=== PATIENT | male | born 1990 | race Caucasian/White ===

== ENCOUNTER 2020-10-28 09:00 | Outpatient (CLI) | payer OTHER ==
--- NOTE | 2020-10-28 11:58 | MRI Report ---
PROCEDURE: Foot RT W/O INDICATIONS: RT FOOT PAIN TECHNIQUE: Noncontrast coronal and sagittal T1 spin echo and STIR; axial T1 spin echo and T2 fast spin echo with fat saturation through the right forefoot. COMPARISON: None. FINDINGS: Image quality: Excellent. Bones: The visualized bone marrow demonstrates normal signal on all sequences. The overlying cortex appears intact. No fractures lines or intra-osseous lesions. Soft tissues: The scanned muscles demonstrate normal overall bulk and internal signal. Mild edema ov erlying the fifth MTP joint.. No soft tissue masses are present. 3 mm ganglion cyst seen in the reg ion of the Lisfranc ligament which is intact. IMPRESSION: Nonspecific lateral forefoot subcutaneous cellulitis at the level of the fifth metatarsal joint. This is in the area of the fiducial marker placed on the skin surface. Reviewed by: Reinier Ugalde MD on 10/28/2020 11:57 AM [facility] Approved by: Reinier Ugalde MD on 10/28/2020 11:57 AM [facility] Station ID: [id number]
== END 2020-10-28 09:01 | disposition home or self-care (01) ==
LOC: DI 09:00
PROVIDERS: ATTEND Student in an Organized Health Care Education/Training Program
DX: M79.671 Pain in right foot (principal); L03.115 Cellulitis of right lower limb

== ENCOUNTER 2021-03-23 10:30 | Emergency (ER) | payer OTHER ==
[2021-03-23 10:44] VITALS: BP 162/84
--- NOTE | 2021-03-23 11:01 | ED Physician Documentation ---
History of Present Illness - Stated complaint Stated Complaint: BLOOD IN STOOL - Chief complaint Chief Complaint: General - History obtained from History obtained from: Patient - History of Present Illness Timing: How many weeks ago (1) - Additonal information Additional information: 30-year-old male has experienced some rectal bleeding and finds that he has a small mass near the rectum. He was able to take a mirror and look at this area and is certain this is right at the anus. He has persistence of the bleeding and now comes to the emergency department for evaluation. He did have excessive pain associated with this the pain is reduced now. Review of Systems Constitutional: denies: Fever Respiratory: denies: Cough GI: reports: Other (Rectal pain mass and bleeding). denies: Vomiting, Diarrhea : denies: Dysuria, Frequency Skin: denies: Rash, Lesions Musculoskeletal: denies: Neck pain, Back pain, Extremity pain PD PAST MEDICAL HISTORY - Present Medications Home Medications: Ambulatory Orders Medication Instructions Recorded Confirmed No Known Home Medications 03/23/21 03/23/21 - Allergies Allergies/Adverse Reactions: Allergies Allergy/AdvReac Type Severity Reaction Status Date / Time No Known Drug Allergies Allergy Verified 03/23/21 10:44 PD ED PE NORMAL - Vitals Vital signs reviewed: Yes (Hypertensive) - General General: Alert and oriented X 3, No acute distress, Well developed/nourished - HEENT HEENT: Atraumatic, PERRL, EOMI - Respiratory Respiratory: No respiratory distress - Rectal Rectal: Other (On rectal exam at 10:00 there is a thrombosed hemorrhoid it is minimally tender it does not reduce and there is some bleeding associated with it.) - Derm Derm: Normal color, Warm and dry, No rash - Extremities Extremities: No deformity, No edema - Neuro Neuro: Alert and oriented X 3, 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 He is instructed on the use of hydrocortisone and pressure for reduction of hemorrhoids and general care of hemorrhoids. Departure - Departure Disposition: 01 Home, Self Care Clinical Impression: Bleeding external hemorrhoids Instructions: Hemorrhoids Thrombosed, ED Hemorrhoids Follow-Up: DIEGO Marie [Provider Group] Discharge Date/Time: 03/23/21 11:12
== END 2021-03-23 11:12 | disposition home or self-care (01) ==
LOC: ED 10:30
DX: K64.5 Perianal venous thrombosis (principal)
CPT/HCPCS: 99281; 99282